=== PATIENT | male | born 1960 | race Caucasian/White ===

== ENCOUNTER 2016-09-12 08:12 | Inpatient (IN) | payer OTHER ==
[2016-08-01 09:59] VITALS: BMI 31.0
--- NOTE | 2016-08-01 10:34 | PAT Medication Instructions ---
Service Date Aug 01, 2016. Current Home Medication List Aspirin (Aspirin Ec), 81 MG PO HS Znhkhmzzwmlu-Qfxnwkzidllji-Zuf (Dermacinrx Therazole Jeronimo 1-0.05 & 20 %), 1 DOSE TOP UD PRN for PRN Diclofenac (Voltaren), 75 MG PO BID Losartan Potassium (Cozaar), 25 MG PO QAM Metformin Hcl (Glucophage), 500 MG PO BID Saccharomyces Boulardii (Probiotic), 1 CAP PO QAM Silodosin (Rapaflo), 1 CAP PO DAILY PRN for PRN Sitagliptin Phosphate (Januvia), 100 MG PO QPM Medication Instructions For Your Scheduled Surgery - Hold the following medications 10 days prior to surgery: Diclofenac (Voltaren), 75 MG PO BID - Hold the following medications 48 hours prior to surgery: Metformin Hcl (Glucophage), 500 MG PO BID - Hold the following medications 24 hours prior to surgery: Qejjimnjntkb-Zhtnlifvdentg-Icb (Dermacinrx Therazole Jeronimo 1-0.05 & 20 %), 1 DOSE TOP UD PRN for PRN - Hold the following medications the morning of surgery: Losartan Potassium (Cozaar), 25 MG PO QAM Saccharomyces Boulardii (Probiotic), 1 CAP PO QAM - Take the following medications the morning of surgery with a sip of water OTHERWISE NOTHING TO EAT OR DRINK AFTER MIDNIGHT: Tylenol (okay to take if needed up to 4 hours prior to surgery) - Take the following medications as scheduled the night before surgery: Sitagliptin Phosphate (Januvia), 100 MG PO QPM Aspirin (Aspirin Ec), 81 MG PO HS Silodosin (Rapaflo), 1 CAP PO DAILY PRN Tylenol If you have any questions please call us at [phone] (Bertha Guevara PA-C) or [phone] or [phone]
[2016-08-01 10:56] LABS: BASO % 0.6 %; BASO ABS # 0.04 K/uL (0-0.2); COMPLETE YES; EOS % 1.9 %; HEMATOCRIT 42.8 % (42-52); IG% 0.3 %; LYMPH % 19.8 %; LYMPH ABS # 1.27 K/uL (1.2-3.4); MEAN CELL VOLUME 84.1 fL (80-100); MEAN CORPUSCULAR HEMOGLOBIN 29.7 pg (25-34); MEAN CORPUSCULAR HGB CONC 35.3 g/dl (32-36); MEAN PLATELET VOLUME 9.4 fL (7.4-10.4); MONO % 7.3 %; NEUT % 70.1 %; PLATELET COUNT 242 K/uL (130-400); RED BLOOD COUNT 5.09 M/uL (4.7-6.1); WHITE BLOOD COUNT 6.41 K/uL (4.8-10.8)
[2016-08-01 11:05] LABS: PROTHROMBIN TIME (PATIENT) 10.8 SECONDS (9.0-12.0)
--- NOTE | 2016-08-01 11:06 | DIAGNOSTIC IMAGING REPORT ---
TWO VIEW CHEST CLINICAL HISTORY: Preoperative examination. FINDINGS: PA and lateral chest radiographs are compared to study dated 03/30/2013. The cardiomediastinal silhouette is unremarkable. The lungs and pleural spaces are clear. There is no pneumothorax. The bony thorax appears intact. IMPRESSION: No active disease in the chest. Electronically signed by: Horacio Garrison M.D. 08/01/2016 11:04 AM
[2016-08-01 12:05] LABS: BUN/CREATININE RATIO 13.8 (10-20); POTASSIUM 4.7 mmol/L (3.5-5.1)
[2016-08-01 12:41] LABS: CALCIUM 9.4 mg/dl (8.5-10.1)
--- NOTE | 2016-09-08 08:14 | HISTORY & PHYSICAL EXAMINATION ---
DATE OF ADMISSION: 09/12/2016 CHIEF COMPLAINT: Bilateral knee pain and discomfort, left side greater than right. HISTORY OF PRESENT ILLNESS: The patient is a 56-year-old very active palomares fairly well controlled diabetes who presents for surgical treatment of both knees. He has a long history of bilateral knee pain and discomfort. Left knee hurts a bit more than the right. He has been through extensive conservative therapy including oral medicines as well as injections. The shots give him a couple weeks of relief at best and that is it. 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 By the end of the day, he has difficulty getting around. He has swelling that gets worse as the day goes on. He actually gets pain in the middle of the night that wakes him up. He would like to have both knees replaced. PAST MEDICAL HISTORY: Significant for: 1. Diabetes, well controlled. 2. Gastroesophageal reflux disease. 3. Sleep apnea. 4. Hypertension. PREVIOUS SURGERIES: Include: 1. Biceps repair. 2. Knee arthroscopy. ALLERGIES: HYDROCODONE WHICH CAUSES ITCHING, NOT A TRUE ANAPHYLACTIC REACTION. CURRENT MEDICINES: Include: 1. Diclofenac 75 mg twice a day. 2. Januvia 10 mg a day. 3. Losartan 25 mg. 4. Metformin 500 mg 2 twice a day. 5. Aspirin 81 mg a day. SOCIAL HISTORY: A 56-year-old male. He is a palomares. He does not smoke. FAMILY HISTORY: Noncontributory. REVIEW OF SYSTEMS: Negative for neurological problem, vascular problems or bleeding disorders. Denies any chest pain. No shortness of breath. No history of DVT or PE. PHYSICAL EXAMINATION: GENERAL: Reveals a healthy, pleasant, middle-aged male. He looks to be in excellent health. HEENT EXAMINATION: Benign. NECK: Supple. No lymphadenopathy. LUNGS: Clear to auscultation. HEART: Has a regular rate and rhythm. ABDOMEN: Soft, nontender, nondistended. EXTREMITY EXAMINATION: Grossly neurovascularly intact except as follows: Examination of both knees reveals the patient ambulate independently. He has varus alignment to both knees. He has got a varus thrust with weightbearing on both sides. Range of motion is pretty symmetrically about 5 degrees short of full extension and 20 degrees of flexion. Again, no pain with hip motion on either side. X-RAYS: X-rays of both knees reveal advanced bilateral knee DJD. The left side is a bit worse than the right. He has got fixed varus deformities to his knee with subchondral sclerosis. ASSESSMENT: A 56-year-old male palomares with advanced bilateral knee pain and degenerative joint disease, unresponsive to conservative treatment. He does have a history of knee arthroscopy in the past. He has failed conservative care and would like to have both knees replaced. PLAN: We are going to take him to the operating room and do bilateral knee replacements. The risks and benefits of this procedure were explained to the patient including but not limited to DVT, PE, , infection, neurological injury, vascular injury, bleeding problem, pain, limited range of motion, stiffness, failure to relieve his symptoms, incomplete relief of symptoms, need for further surgery in the future, persistent pain, etc. The patient understands and desires. Informed consent was obtained. We did talk to him about holding his diclofenac 10 days preop and hold his metformin 2 days preop. As far as discharge plans, he is willing to go to [facility] if he can get that approved postop. We will see how he does in the hospital.
[2016-09-12] VITALS (9 sets, daily range): BP systolic 116–150; BP diastolic 72–92; PULSE 68–108; TEMP 36.5–37.2; O2SAT 91–99; Ht 182.9 cm; Wt 105.9 kg
[~2016-09-12] VITALS: Ht 182.9 cm; Wt 105.9 kg
[~2016-09-12 08:12] MED LIST: ACETAMINOPHEN 500 MG TAB PO SCH; ASPI81TA28 PO; BUPIVACAINE 0.25% 30 ML VIAL ONE; BUPIVACAINE 0.5 % 5 MG/1 ML PF 10ML VIAL ONE; BUPIVACAINE LIPOSOME 266 MG, BUPIVACAINE/EPINEPHRINE INJ 50 ML, SODIUM CHLORIDE 0.9% PF... INFIL SCH; CEFAZOLIN 2000 MG/60 ML D5W 60 ML IV SCH; CLOT1PAK TOP; DICL-201 PO; FAMOTIDINE 20 MG TAB PO SCH; GABAPENTIN 300 MG CAP PO SCH; GLC/500 PO; LACTATED RINGER'S 1000ML 500 ML IV ONE; LACTATED RINGER'S 1000ML IV SCH; LOSA1TAB PO; METOCLOPRAMIDE HCL 10 MG TAB PO SCH; SACC250C11 PO; SCOPOLAMINE 1.5 MG TDSY TD SCH; SILO8CAP PO; SITA100T3 PO; TRANEXAMIC ACID INJ 1,000 MG in SODIUM CHLORIDE 0.9% 100ML 100 ML IV SCH
--- NOTE | 2016-09-12 08:46 | History & Physical Bridge Note ---
H&P Re-Evaluation Bridge Note: I have examined the patient, reviewed the History & Physical and in the interval since the performance of the History & Physical I have noted the following changes of clinical significance: No changes noted
[2016-09-12] MEDS: LACTATED RINGER'S 1000ML 1,000 ML IV SCH ×2 (08:47→15:17)
[2016-09-12] MEDS ORDERED: FENTANYL CITRATE INJ 50 MCG/1 ML 2 ML VIAL ONE (09:15)
[2016-09-12] MEDS ORDERED: PROPOFOL IV EMULSION 10 MG/ML 20 ML VIAL IV ONE ×3 (09:15→13:31)
[2016-09-12] MEDS ORDERED: MIDAZOLAM HCL 1 MG/ML 2ML VIAL ONE ×2 (09:15→10:14)
[2016-09-12] MEDS ORDERED: LIDOCAINE HCL 2% 2 ML VIAL (20MG/ML) ONE (09:15)
[2016-09-12] MEDS ORDERED: BUPIVACAINE LIPOSOME 1/3% 266 MG/20 ML VIAL INFIL ONE (10:32)
[2016-09-12] MEDS ORDERED: LABETALOL HCL IV 5 MG/ML 20ML IV PRN (12:00)
[2016-09-12] MEDS ORDERED: EpHEDrine SULFATE INJ 50 MG/ML AMP IV PRN (12:00)
[2016-09-12] MEDS ORDERED: ONDANSETRON INJ 2 MG/ML 2 ML VIAL IV PRN ×2 (12:00→14:15)
[2016-09-12] MEDS ORDERED: MEPERIDINE HCL 25 MG/ML CARP IV PRN (12:00)
[2016-09-12] MEDS ORDERED: ATROPINE SULFATE 0.1 MG/ML 5ML SYR IV PRN (12:00)
[2016-09-12] MEDS ORDERED: FENTANYL CITRATE INJ 50 MCG/1 ML 2 ML VIAL IV PRN (12:00)
[2016-09-12] MEDS ORDERED: HYDROmorphone INJ 1 MG/ML SYR IV PRN ×2 (12:00→21:15)
[2016-09-12] MEDS ORDERED: BACITRACIN 50000 UNIT VIAL IR ONE (12:33)
--- NOTE | 2016-09-12 14:01 | [facility] Post Operative Brief Note ---
Immediate Operative Summary Operative Date Sep 12, 2016. Pre-Operative Diagnosis Advanced Bilateral Knee Degenerative Joint Disease Post-Operative Diagnosis Advanced Bilateral Knee Degenerative Joint Disease Procedure(s) Performed Bilateral Total Knee Arthroplasty Surgeon Dr. Ac Organization Development Consultant Surgeon(s) CARLA Pruitt Estimated Blood Loss 100 ML Findings Bilateral Knee DJD Fluids (cc crystalloids) 1800 cc Specimens A. Left Knee Bone and Tissue B. Right Knee Bone and Tissue Drains HMV to OrthoPAT Anesthesia Spinal Complication(s) None Disposition Recovery Room / PACU
[2016-09-12] MEDS ORDERED: SILVER SULFADIAZINE 1% CR 50 GM JAR EXT PRN (14:15)
[2016-09-12] MEDS ORDERED: GLUCAGON FOR INJ 1 MG VIAL SQ PRN (14:15)
[2016-09-12] MEDS ORDERED: METOCLOPRAMIDE HCL INJ 5 MG/ML 2 ML VIAL IV PRN (14:15)
[2016-09-12] MEDS ORDERED: GLUCOSE 10 TABS/TUBE PO PRN (14:15)
[2016-09-12] MEDS ORDERED: ALUMINUM/MAGNESIUM/SIMETH (MAALOX MAX) 30 ML UDC PO PRN (14:15)
[2016-09-12] MEDS ORDERED: DiphenhydrAMINE HCL 50 MG/ML VIAL IV PRN (14:15)
[2016-09-12] MEDS ORDERED: MAGNESIUM HYDROXIDE SUSP 30 ML UDC PO PRN (14:15)
[2016-09-12] MEDS ORDERED: MoRPHine SULFATE 2 MG/ML CARP IV PRN (14:15)
[2016-09-12] MEDS ORDERED: BISACODYL 10 MG SUPP PR PRN (14:15)
[2016-09-12] MEDS ORDERED: TAMSULOSIN HCL 0.4 MG CAP PO PRN (14:15)
[2016-09-12] MEDS ORDERED: ZOLPIDEM TARTRATE 5 MG TAB PO PRN (14:15)
[2016-09-12] MEDS ORDERED: GLUCOSE 40% GEL 15 GM TUBE PO PRN (14:15)
[2016-09-12] MEDS ORDERED: DEXTROSE 50% 50 ML SYR IV PRN (14:15)
--- NOTE | 2016-09-12 14:34 | DIAGNOSTIC IMAGING REPORT ---
RIGHT KNEE 1 OR 2 VIEWS ROUTINE CLINICAL HISTORY: Right knee arthroplasty. Degenerative joint disease. COMPARISON: Knee radiographs July 13, 2016. FINDINGS: Alignment of the total right knee arthroplasty is anatomic. There is no fracture or unexpected radiopaque foreign body. Drains and skin amado are present. IMPRESSION: Expected findings following total right knee arthroplasty. Electronically signed by: Presley Barrera M.D. 09/12/2016 2:32 PM Dictated Date/Time: 09/12/2016 2:31 PM
--- NOTE | 2016-09-12 14:34 | DIAGNOSTIC IMAGING REPORT ---
LEFT KNEE 1 OR 2 VIEWS ROUTINE CLINICAL HISTORY: Bilateral knee arthroplasty. Degenerative joint disease. COMPARISON: Bilateral knee radiographs July 13, 2016. FINDINGS: Alignment of the total left knee arthroplasty is anatomic. There is no fracture or unexpected radiopaque foreign body. Drains and skin amado are present. IMPRESSION: Expected findings following total left knee arthroplasty. Electronically signed by: Presley Barrera M.D. 09/12/2016 2:33 PM Dictated Date/Time: 09/12/2016 2:32 PM
--- NOTE | 2016-09-12 15:16 | Anesthesiology Progress Note ---
Anesthesia Post Op Note Date & Time Sep 12, 2016 at 15:15 Vital Signs Pain Intensity: 0 Vital Signs Past 12 Hours Date Time Temp Pulse Resp B/P Pulse Ox O2 Delivery O2 Flow Rate FiO2 09/12/16 15:10 36.2 69 14 122/81 99 Nasal Cannula 2 09/12/16 15:00 62 12 124/78 100 Nasal Cannula 2 09/12/16 14:50 61 9 100/80 99 Nasal Cannula 2 09/12/16 14:40 67 12 120/83 99 Nasal Cannula 2 09/12/16 14:30 61 15 117/81 99 Nasal Cannula 2 09/12/16 14:20 74 17 129/83 99 Mask 10 09/12/16 14:10 36.1 88 11 126/89 100 Mask 10 09/12/16 14:02 36.1 72 12 135/77 100 Mask 10 09/12/16 08:49 36.9 83 18 150/92 97 Room Air Notes Mental Status: alert / awake / arousable, participated in evaluation Pt Amnestic to Procedure: Yes Nausea / Vomiting: adequately controlled Pain: adequately controlled Airway Patency, RR, SpO2: stable & adequate BP & HR: stable & adequate Hydration State: stable & adequate Neuraxial Anesthesia: was administered, sensory block is resolving Anesthetic Complications: no major complications apparent
[2016-09-12] MEDS: CHECK SCOPOLAMINE PATCH PLACEMENT SCH ×2 (16:57→23:57)
[2016-09-12] MEDS: SODIUM CHLORIDE 0.9% 1000ML 1,000 ML IV SCH ×2 (16:58→20:41)
[2016-09-12] MEDS: RAPAFLO: ORDER AWAITING ACTION SCH ×2 (16:59→23:58)
[2016-09-12] MEDS: INSULIN HUMAN REGULAR SC SCH ×2 (17:01→21:00)
[2016-09-12] MEDS: FERROUS GLUCONATE 324 MG TAB PO SCH (18:29)
[2016-09-12] MEDS: OXYCODONE HCL IR 5 MG TAB (IMMEDIATE RELEASE) PO PRN ×2 (18:31→23:57)
[2016-09-12] MEDS: CEFAZOLIN IV 2,000 MG in DEXTROSE 5% 50ML 50 ML IV SCH (20:11)
[2016-09-12] MEDS: ACETAMINOPHEN 500 MG TAB PO SCH (20:11)
[2016-09-12] MEDS ORDERED: NURSING VERBAL MED ORDER ONE (20:30)
[2016-09-12] MEDS ORDERED: HYDROmorphone INJ 1 MG/ML SYR ONE (20:52)
[2016-09-12] MEDS: TAPENTADOL ER 50 MG TABCR PO SCH (21:03)
[2016-09-12] MEDS: SITAGLIPTIN 100 MG TAB PO SCH (21:04)
[2016-09-12] MEDS: DOCUSATE SODIUM 100 MG CAP PO SCH (21:05)
[2016-09-12] MEDS: ASPIRIN 325 MG ECTAB PO SCH (21:05)
[2016-09-12] MEDS ORDERED: TRANEXAMIC ACID INJ 1,000 MG in SODIUM CHLORIDE 0.9% 100ML 100 ML IV ONE (22:00)
[2016-09-12] MEDS: KETOROLAC TROMETHAMINE 30 MG/ML VIAL IV. SCH (22:03)
[2016-09-13] VITALS (8 sets, daily range): BP systolic 103–146; BP diastolic 66–83; PULSE 95–113; TEMP 36.5–37.6; O2SAT 93–96
[2016-09-13] MEDS: SODIUM CHLORIDE 0.9% 1000ML 1,000 ML IV SCH ×2 (01:53→09:09)
[2016-09-13] MEDS: CEFAZOLIN IV 2,000 MG in DEXTROSE 5% 50ML 50 ML IV SCH (04:02)
[2016-09-13] MEDS: ACETAMINOPHEN 500 MG TAB PO SCH ×3 (04:03→20:13)
[2016-09-13] MEDS: KETOROLAC TROMETHAMINE 30 MG/ML VIAL IV. SCH ×4 (04:03→22:20)
[2016-09-13 06:42] LABS: HEMATOCRIT 34.9 % (42-52); MEAN CELL VOLUME 83.5 fL (80-100); MEAN CORPUSCULAR HEMOGLOBIN 30.6 pg (25-34); MEAN CORPUSCULAR HGB CONC 36.7 g/dl (32-36); MEAN PLATELET VOLUME 9.3 fL (7.4-10.4); PLATELET COUNT 224 K/uL (130-400); RED BLOOD COUNT 4.18 M/uL (4.7-6.1); WHITE BLOOD COUNT 11.59 K/uL (4.8-10.8)
[2016-09-13] MEDS: RAPAFLO: ORDER AWAITING ACTION SCH ×3 (07:05→23:54)
[2016-09-13 07:07] LABS: BUN/CREATININE RATIO 17.8 (10-20); CALCIUM 7.8 mg/dl (8.5-10.1); CREATININE 1.4 mg/dl (0.60-1.40); POTASSIUM 4.3 mmol/L (3.5-5.1)
[2016-09-13] MEDS: OXYCODONE HCL IR 5 MG TAB (IMMEDIATE RELEASE) PO PRN ×4 (07:29→22:19)
[2016-09-13] MEDS: CHECK SCOPOLAMINE PATCH PLACEMENT SCH ×3 (07:29→23:54)
[2016-09-13] MEDS: INSULIN HUMAN REGULAR SC SCH ×4 (08:44→21:24)
[2016-09-13] MEDS: TAPENTADOL ER 50 MG TABCR PO SCH ×2 (08:45→21:15)
[2016-09-13] MEDS: ASPIRIN 325 MG ECTAB PO SCH ×2 (08:45→21:17)
[2016-09-13] MEDS: FERROUS GLUCONATE 324 MG TAB PO SCH ×3 (08:45→18:00)
[2016-09-13] MEDS: PANTOprazole SOD 40 MG TAB PO SCH (08:45)
[2016-09-13] MEDS: DOCUSATE SODIUM 100 MG CAP PO SCH ×2 (08:45→21:17)
[2016-09-13] MEDS: MULTIVITAMIN TAB PO SCH (08:45)
[2016-09-13] MEDS: LOSARTAN POTASSIUM 25 MG TAB PO SCH (08:45)
[2016-09-13] MEDS: SACCHAROMYCES BOUL (FLORASTOR) 250 MG CAP PO SCH (08:45)
--- NOTE | 2016-09-13 10:33 | PROGRESS NOTE ---
DATE: 09/13/2016 DATE: 09/13/2016. SUBJECTIVE: A 56-year-old gentleman postop day 1 from bilateral knee replacements. He is doing well. Pain is controlled. Therapy went reasonably well. No chest pain or shortness of breath. Not feeling dizzy or lightheaded. OBJECTIVE: VITAL SIGNS: Temperature 36.6. Vital signs stable. PHYSICAL EXAMINATION: GENERAL: Reveals a healthy, pleasant, middle-aged male. He is sitting up at his bedside talking to the therapist. LUNGS: Clear to auscultation. HEART: Regular rate and rhythm. ABDOMEN: Soft, nontender, nondistended. EXTREMITY EXAMINATION: Grossly neurovascularly intact except as follows: Examination of both lower extremities reveals the dressing to be clean, dry and intact. Legs are well aligned. He can dorsiflex and plantarflex both feet appropriately. He is neurologically intact. LABORATORY DATA: Hemoglobin is 12.8. Hematocrit 34.9. White cell count 11.59. Electrolytes are stable. ASSESSMENT: A 56-year-old gentleman postop day 1 from bilateral knee replacements, doing well. Pain is controlled. He is neurologically intact. PLAN: 1. DVT prophylaxis including thigh-high TEDs, SCDs, and aspirin twice a day. 2. PT/OT. Weightbearing as tolerated. Bilateral knee protocol. 3. Pain control, doing well with current pain regimen. 4. Disposition: He is hoping to be discharged to [facility] for rehab stay if he qualifies. Social workers are working on this.
--- NOTE | 2016-09-13 13:45 | OPERATIVE REPORT ---
DATE OF OPERATION: 09/12/2016 SURGEON: Zachary Ac MD DIRECTOR OF CARDIAC REHABILITATION: CARLA Chambers PREOPERATIVE DIAGNOSIS: Bilateral knee degenerative joint disease. POSTOPERATIVE DIAGNOSIS: Same. PROCEDURE PERFORMED: Bilateral cemented posterior stabilized total knee arthroplasty. COMPLICATIONS: None. ESTIMATED BLOOD LOSS: 100 mL. FLUID REPLACEMENT: 1800 mL crystalloid fluid replacement. TOURNIQUET TIME: Left side tourniquet time was 82 minutes at 300 mmHg. Right side tourniquet time was 82 minutes at 300 mmHg. OPERATIVE INDICATIONS: The patient is a 56-year-old very active gentleman and palomares who has had a long history of bilateral knee pain and discomfort, left side a bit worse than the right. He had been through extensive conservative treatment without adequate relief. 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 He was strongly desiring to have both knees replaced at the same time. OPERATIVE FINDINGS: Operative findings revealed advanced bilateral knee DJD, primarily involving the medial compartment, both knees. He had grade 4 [id number] disease extensively of both the medial femoral condyle and medial tibial plateau in both knees. He did have a fixed varus deformity to both knees. Moderate size joint effusions bilaterally. OPERATIVE IMPLANTS: Left side implants consisted of: 1. Biomet Vanguard size 72.5 posterior stabilized femoral component. 2. Biomet size 79 tibial tray. 3. A 12-mm posterior stabilized polyethylene insert. 4. A 34 x 8.5 all poly patella. Right side implants consisted of: 1. Biomet Vanguard size 75 right posterior stabilized femoral component. 2. Biomet size 79 tibial tray. 3. A 10-mm posterior stabilized polyethylene insert. 4. A 34 x 8.5 all poly patella. OPERATIVE PROCEDURE: The patient was taken to the operating room, identified and placed on the operating table in the supine position. All contact areas were appropriately padded. IV antibiotics were provided by anesthesia team. A spinal anesthetic and adductor canal blocks have been provided in the holding area. A Rogel catheter was placed in sterile fashion. Both lower extremities were then prepped and draped in the usual sterile fashion. Attention was first drawn to the left leg. Left leg was elevated and exsanguinated with Esmarch and tourniquet was placed at 300 mmHg. An anterior approach to the left knee was then performed through a longitudinal incision centered over the patella. Sharp dissection was carried through the subcutaneous tissue down to the level of the extensor mechanism. A medial parapatellar arthrotomy incision was made. Some subperiosteal dissection was carried out medially. We did a pretty extensive dissection due to his fixed varus deformity. The fat pad was resected from beneath the patellar tendon. The lateral patellofemoral ligament was released. The patella was everted and knee was flexed. The osteophytes were taken off the distal femur. The ACL and PCL were then released from the distal femur and the tibia subluxated anteriorly. The external tibial alignment jig was then placed in the anterior face of the tibia and adjusted 16 mm medially. Proximal tibial cut was made to remove about 2 mm of bone from the most deficient aspect of the medial tibial plateau. The tibia was sized to a size 79. Some osteophytes were taken off medial and posteromedially. Attention was then drawn to the femur. The distal femur was entered with a sharp drill. Intramedullary canal was suctioned. A left 6-degree valgus cutting guide was placed. Distal femoral cutting block was pinned in place. Distal femoral cut was made to take an additional 3 mm of bone off the distal femur. The femur was then sized to a size 72.5. We did downsize this slightly. The AP cutting block was pinned parallel to the epicondylar axis, which was 5 degrees of external rotation. The anterior cut, anterior chamfer, posterior cut, and posterior chamfer cuts were made. Box cutting guide was placed and adjusted slightly lateral and the box cut was made. The knee was flexed. The remnants of the medial and lateral menisci were excised. The osteophytes were taken off the posterior aspect of the femur. A trial femoral component was placed. Tibial tray was pinned in maximum external rotation and drill and stem punch were used to create defect in proximal tibia for the tibial tray. The knee was then trialed and the 12-mm insert fit most appropriately. Attention was then drawn to the patella. The patella was cleaned of all soft tissues. Patellar thickness measured 26 mm, cut down to 14. It was sized to a size 34 patella. Lug holes were drilled for a 34 patella. Lateral osteophyte was removed. Patella button was placed. Knee was taken through range of motion and the patella tracked nicely with no thumbs test. Attention was then drawn toward placement of permanent components. All trial components were removed. A bone plug was placed in the distal femur to limit blood loss. A double batch of Palacos G cement was mixed. A left size 72.5 posterior stabilized femoral component, size 79 tibial tray, 12-mm posterior stabilized polyethylene insert, and a 34 x 8.5 all poly patella were then cemented in place. Knee was brought out into full extension until cement hardened. A final cement check was then performed. The pericapsular tissues were injected with about 50 mL of a combination of 10 mL of Exparel, 15 mL of normal saline, and 25 mL of 0.25% Marcaine with epinephrine. The wound was irrigated. Two Hemovac drains were placed in the depth of the wound. The extensor mechanism was then closed with a combination of #1 PDS suture and #1 Vicryl suture in a yeadxr-[id number] fashion. Extensor mechanism was checked and found to be intact. The subcutaneous tissues were then closed with 2-0 Dexon suture in a buried interrupted fashion. Skin was closed skin amado. Leg was then cleaned and dried and a sterile dressing with Xeroform, 4 x 4, sterile cast padding and Taiwo bandage were applied. The tourniquet was then let down on this side for a tourniquet time 82 minutes. During the closure of the subcutaneous tissues and skin on the left knee, a similar procedure was begun on the right leg. The right lower leg was elevated and exsanguinated with Esmarch and tourniquet was placed at 300 mmHg. An anterior approach to the right knee was then performed through a longitudinal incision centered over the patella. Sharp dissection was carried out through the subcutaneous tissues down to the level of the extensor mechanism. A medial parapatellar arthrotomy incision was made. Some subperiosteal dissection was carried out medially. The fat pad was resected from beneath the patellar tendon. The patella was everted and the knee was flexed. The osteophytes were taken off the distal femur. The ACL and PCL were then released from the distal femur and the tibia subluxated anteriorly. The external tibial alignment jig was then placed in the anterior face of the tibia and adjusted 16 mm medially. Proximal tibial cut was made to remove about a millimeter of bone from the most deficient aspect of the medial tibial plateau. Tibia was sized to a size 79. Some osteophytes were taken off medial and posteromedially. Attention was then drawn to the femur. The distal femur was entered with a sharp drill. Intramedullary canal was suctioned. A right 6-degree valgus cutting guide was placed. The distal femoral cutting block was pinned in place. Distal femoral cut was made to take an additional 3 mm of bone off the distal femur. The femur was then sized to a size 75. The AP cutting block was pinned parallel to the epicondylar axis, which was 4 degrees of external rotation. The anterior cut, anterior chamfer, posterior cut, and posterior chamfer cuts were made. Box cutting guide was placed and adjusted slightly lateral and the box cut was made. The knee was flexed. The remnants of the medial and lateral menisci were excised. The osteophytes were taken off the posterior aspect of the femur. Trial femoral component was placed. Tibial tray was pinned in maximum external rotation and drill and stem punch were used to create defect in proximal tibia for the tibial tray. The knee was then trialed and the 10-mm insert fit most appropriately. Attention was then drawn to the patella. The patella was cleaned of all soft tissues. Patella thickness measured 25 mm and was cut down to 13. It was sized to a size 34 patella. Lug holes were drilled for a 34 patella. Lateral osteophyte was removed. Patella button was placed. Knee was taken through range of motion and the patella tracked nicely with no thumbs test. Attention was then drawn toward placement of permanent components. All trial components were removed. The bone plug was placed in the distal femur to limit blood loss. A double batch of Palacos G cement was mixed. A right size 75 posterior stabilized femoral component, size 79 tibial tray, a 10-mm posterior stabilized polyethylene insert, 34 x 8.5 all poly patella then cemented in place. Knee was brought out into full extension until cement hardened. A final cement check was then performed. The pericapsular tissues were injected with 50 mL of a combination of 10 mL of Exparel, 15 mL of normal saline, and 25 mL of 0.25% Marcaine with epinephrine. The wound was once again irrigated. Hemovac drain was placed in depth of the wound. The extensor mechanism was then closed with a combination of #1 PDS suture and #1 Vicryl suture in a [id number] fashion. Extensor mechanism was checked and found to be intact. The subcutaneous tissues were then closed with 2-0 Dexon suture in a buried interrupted fashion. Skin was closed with skin amado. The leg was then cleaned and dried and a sterile dressing of Xeroform, 4 x 4, sterile cast padding and Taiwo bandage were applied. The tourniquet was then let down on this side for a tourniquet time 82 minutes. Of note, the patient did receive 1 gram of tranexamic acid before the tourniquet on the left side, it was let down. The patient was then transferred to the recovery room in stable condition. The patient tolerated the procedure well with no complications. All needle and sponge counts were correct at the end of the operation. I attest to the content of the Intraoperative Record and any orders documented therein. Any exceptions are noted below. MTDD
[2016-09-13] MEDS ORDERED: ACET-1138 PO (19:42)
[2016-09-13] MEDS ORDERED: ASPEC325 PO (19:42)
[2016-09-13] MEDS ORDERED: MORP15TA19 PO (19:42)
[2016-09-13] MEDS ORDERED: RXC5 PO (19:42)
--- NOTE | 2016-09-13 19:45 | Discharge Instructions ---
Discharge Instructions Admission Reason for Admission: Bilateral Knee Degenerative Joint Disease Discharge Discharge Diagnosis / Problem: Bilateral Knee Replacements Discharge Goals Goal(s): Decrease discomfort, Improve function, Increase independence, Improve disease control, Therapeutic intervention Activity Recommendations Activity Level: Assistance Required Therapies: Physical Therapy, Occupational Therapy Weightbearing Status: Left weightbearing, Right weightbearing . Additional Information Patient informed of condition: Yes Advance Directives: No DNR: No Level of Care: Acute Rehab Communicable Disease: No Prognosis: Improving Instructions / Follow-Up Instructions / Follow-Up ACTIVITY RECOMMENDATIONS: Physical Therapy: * You will go to physical therapy three times each week for four to six weeks after your surgery in order to regain your knee range of motion and to retrain your knee to work properly. * It is just as important to make sure you are getting your knee perfectly straight as it is to regain your knee bend. * Taking a pain pill an hour before therapy can help you have a more productive and comfortable therapy session. Home Exercise: * You were shown a series of exercises (heel props, heel slides, etc.) in the hospital. Do these exercises three to four times each day including the exercises you were shown in physical therapy. Walking: * Get up and walk several times each day. For the first four weeks, try not to stand or walk for more than one hour at a time. If you do stand or walk for more than one hour, you will not hurt anything, but your knee and leg will likely swell. * As you feel comfortable, you may change from the walker or crutches to a cane and then to independent walking. MEDICATIONS: New Medicine: * You will likely be taking one or more of these medications: 1. MS Contin - A long-acting pain medication. Take 1 tablet twice a day for the first ten days to decrease your baseline level of pain. 2. Oxycodone - A quick and shorter-acting pain medication. Take one to two tablets every four to six hours to lessen your pain. 3. Aspirin - Thins your blood to lessen the chance of forming a blood clot. * The most common side effects of pain medicine and iron are nausea and constipation. If nausea or constipation is too much of a problem or if you have any questions about your new medicines or doses, call [facility] at [phone]. We will try to help you manage these issues. VERY IMPORTANT TO READ AND REVIEW" Pain: * The immediate post-operative period after knee replacement surgery is often quite painful. * You are given a prescription for pain medicine. You should take it, as directed, when you need it, especially before physical therapy and before going to bed. Pain that interferes with sleep is very common and can last several months. * You will likely need pain medicine for the first four to six weeks. It will not stop all of the pain. The pain will lessen and as you feel better, you may change to milder pain medicine such as Tylenol. * The most common side effects of pain medicine are nausea and constipation, so don't take more than you need. SPECIAL CARE INSTRUCTIONS: TEDs/Elastic Stockings: * The white elastic stockings help limit swelling and prevent blood clots from forming in your legs. The more you wear them, the more they work. * Wear them for six weeks after knee replacement surgery and four weeks after partial knee replacement. Prevention of Infection: * Take antibiotics one hour before any dental cleaning, dental work, urological procedure, gastrointestinal procedure or any invasive surgery in order to prevent your new joint from getting infected. * You may get the antibiotics from the doctor performing the procedure or you may call our office at before and we will call in a prescription to the pharmacy of your choice. Things to Watch For: * Drainage from the incision site that occurs more than one week after your surgery. * Severely increased knee/leg pain or swelling. * Increased redness at the incision site. * Fever above 102 degrees Fahrenheit. * Unusual chest pain or shortness of breath. * Unusual pain or burning with urination. Call [facility] at with any of the above problems or if you have any questions about your medicines or recovery. FOLLOW UP VISIT: Make an appointment to see your doctor for approximately two weeks after surgery for a progress check and staple removal by calling the office at . Current Hospital Diet Patient's current hospital diet: Diabetes Type 2 Diet Discharge Diet Recommended Diet: Diabetes Type 2 Diet Procedures Procedures Performed: Bilateral Total Knee Arthroplasty Pending Studies Studies pending at discharge: no Laboratory Results Hemoglobin A1c Test 06/16/16 07:30 Range/Units Estimated Average Glucose 140 mg/dl Hemoglobin A1c 6.5 H 4.5-5.6 % Lipid Panel Test 06/16/16 08:30 Range/Units Triglycerides Level 70 0-150 mg/dl Cholesterol Level 145 0-200 mg/dl HDL Cholesterol 37 mg/dl Cholesterol/HDL Ratio 3.9 LDL Cholesterol, Calculated 94 mg/dl Medical Emergencies . Who to Call and When: Medical Emergencies: If at any time you feel your situation is an emergency, please call 911 immediately. . Non-Emergent Contact Non-Emergency issues call your: Surgeon . . "Provider Documentation" section prepared by Zachary Ac. Core Measure Problem Core Measures: None
[2016-09-13] MEDS: SITAGLIPTIN 100 MG TAB PO SCH (22:19)
[2016-09-14] VITALS: PULSE 95
[2016-09-14] MEDS: ACETAMINOPHEN 500 MG TAB PO SCH ×2 (04:18→12:42)
[2016-09-14] MEDS: KETOROLAC TROMETHAMINE 30 MG/ML VIAL IV. SCH ×3 (04:19→15:57)
[2016-09-14 06:25] VITALS: BP 112/69; PULSE 102; TEMP 37; O2SAT 92
[2016-09-14] MEDS: RAPAFLO: ORDER AWAITING ACTION SCH ×2 (07:09→16:00)
[2016-09-14] MEDS: MULTIVITAMIN TAB PO SCH (07:22)
[2016-09-14] MEDS: SACCHAROMYCES BOUL (FLORASTOR) 250 MG CAP PO SCH (07:23)
[2016-09-14] MEDS: PANTOprazole SOD 40 MG TAB PO SCH (07:23)
[2016-09-14] MEDS: LOSARTAN POTASSIUM 25 MG TAB PO SCH (07:23)
[2016-09-14] MEDS: FERROUS GLUCONATE 324 MG TAB PO SCH ×3 (07:23→17:45)
[2016-09-14] MEDS: INSULIN HUMAN REGULAR SC SCH ×3 (07:27→17:16)
[2016-09-14] MEDS: TAPENTADOL ER 50 MG TABCR PO SCH (07:28)
[2016-09-14] MEDS: ASPIRIN 325 MG ECTAB PO SCH (08:43)
[2016-09-14] MEDS: DOCUSATE SODIUM 100 MG CAP PO SCH (08:43)
--- NOTE | 2016-09-14 09:15 | PROGRESS NOTE ---
DATE: 09/14/2016 DATE: 09/14/2016. SUBJECTIVE: A 56-year-old gentleman postop day 2 from bilateral knee replacement. He is doing well. Pain is controlled. Therapy went pretty well. Denies any chest pain or shortness of breath. Not feeling dizzy or lightheaded. OBJECTIVE: VITAL SIGNS: Temperature is 37.0. Vital signs stable. PHYSICAL EXAMINATION: GENERAL: Reveals a pleasant, middle-aged male. He is sitting up in bed, looks pretty comfortable this morning. LUNGS: Clear to auscultation. HEART: Has a regular rate and rhythm. ABDOMEN: Soft, nontender, nondistended. EXTREMITY EXAMINATION: Grossly neurovascularly intact except as follows: Examination of both lower extremities reveals the dressing to be clean, dry and intact. Both legs are well aligned. There is not much in the way of swelling. He can dorsiflex and plantarflex both feet appropriately. He is neurologically intact. ASSESSMENT: A 56-year-old gentleman postop day 2 from bilateral knee replacements doing well. Pain is controlled. PLAN: 1. DVT prophylaxis includes thigh high TEDs, SCDs, and aspirin twice a day. 2. PT/OT. Weightbearing as tolerated. Bilateral knee protocol. 3. Pain control, doing well with current pain regimen. 4. Disposition: He is hoping to go to [facility] for a brief rehab stay. We are awaiting determination and insurance approval and acceptance.
[2016-09-14 15:01] VITALS: BP 104/68; PULSE 104; TEMP 36.9; O2SAT 96
[2016-09-14] MEDS: OXYCODONE HCL IR 5 MG TAB (IMMEDIATE RELEASE) PO PRN (16:23)
--- NOTE | 2016-09-22 17:05 | DISCHARGE SUMMARY ---
ADMITTING PHYSICIAN AND SURGEON: Dr. Ac. ADMITTING DIAGNOSIS: Bilateral knee degenerative joint disease. SURGERY PERFORMED: Bilateral total knee replacements. SECONDARY DIAGNOSES: Include diabetes, gastroesophageal reflux disease, sleep apnea, and hypertension. HISTORY AND PHYSICAL: Well documented in the patient's chart. HOSPITAL COURSE: The patient was admitted on 09/12/2016 underwent bilateral total knee replacements, tolerated the procedure well. There were no complications. He was transferred to the PACU postoperatively and later to the orthopedic floor for further care. He was given Ancef for antibiotic prophylaxis, HARRISON stockings, SCDs and aspirin for DVT prophylaxis. Her hemoglobin, hematocrit and vital signs were monitored during his hospital stay and remained stable. He did not require any blood transfusions. There were no complications. By postoperative day 2, he was tolerating a diabetic diet. Pain was controlled with oral pain medicine. He was participating in physical therapy and he had no signs or symptoms of deep vein thrombosis. On postop day 2, he was transferred to a rehab facility in good condition. He was given printed discharge instructions including prescriptions for extra strength Tylenol, aspirin 325 mg b.i.d., MS Contin and oxycodone. Continue his home medications with the exception of his home dose of aspirin which was discontinued or changed. Continue physical therapy, weightbearing as tolerated, HARRISON stockings. Follow up with Dr. Ac in 10-12 days or sooner if there are problems or concerns.
== END 2016-09-14 17:58 | DRG 462 ==
LOC: ENRESERVDT → ENRESERVTM → C.ACU 08:12 → C.3E 14:07
PROVIDERS: ADMIT Orthopaedic Surgery Sports Medicine; ATTEND Orthopaedic Surgery Sports Medicine
PROC: 0SRC0J9 Replacement of Right Knee Joint with Synthetic Substitute, Cemented, Open Approach (ICD-10-PCS; principal; 2016-09-12 10:40)
PROC: 0SRD0J9 Replacement of Left Knee Joint with Synthetic Substitute, Cemented, Open Approach (ICD-10-PCS; principal; 2016-09-12 10:40)
DX: M17.0 Bilateral primary osteoarthritis of knee (principal); M21.162 Varus deformity, not elsewhere classified, left knee; M21.161 Varus deformity, not elsewhere classified, right knee; M25.462 Effusion, left knee; M25.461 Effusion, right knee; E11.9 Type 2 diabetes mellitus without complications; K21.9 Gastro-esophageal reflux disease without esophagitis; G47.30 Sleep apnea, unspecified; I10 Essential (primary) hypertension; N40.0 Benign prostatic hyperplasia without lower urinary tract symptoms; E66.9 Obesity, unspecified; Z68.31 Body mass index [BMI] 31.0-31.9, adult; Z72.0 Tobacco use; Z79.1 Long term (current) use of non-steroidal anti-inflammatories (NSAID); Z79.82 Long term (current) use of aspirin; Z79.899 Other long term (current) drug therapy

== ENCOUNTER → 2016-10-02 | Outpatient (CLI) | payer OTHER ==
[~2016-10-02] MED LIST changes: +ACET-1138 PO; -ACETAMINOPHEN 500 MG TAB PO SCH; +ASPEC325 PO; -ASPI81TA28 PO; -BUPIVACAINE 0.25% 30 ML VIAL ONE; -BUPIVACAINE 0.5 % 5 MG/1 ML PF 10ML VIAL ONE; -BUPIVACAINE LIPOSOME 266 MG, BUPIVACAINE/EPINEPHRINE INJ 50 ML, SODIUM CHLORIDE 0.9% PF... INFIL SCH; -CEFAZOLIN 2000 MG/60 ML D5W 60 ML IV SCH; -FAMOTIDINE 20 MG TAB PO SCH; -GABAPENTIN 300 MG CAP PO SCH; -LACTATED RINGER'S 1000ML 500 ML IV ONE; -LACTATED RINGER'S 1000ML IV SCH; -METOCLOPRAMIDE HCL 10 MG TAB PO SCH; +RXC5 PO; -SCOPOLAMINE 1.5 MG TDSY TD SCH; -TRANEXAMIC ACID INJ 1,000 MG in SODIUM CHLORIDE 0.9% 100ML 100 ML IV SCH
[2016-10-02 12:08] LABS: BASO % 0.5 %; BASO ABS # 0.04 K/uL (0-0.2); COMPLETE YES; EOS % 4.5 %; HEMATOCRIT 34.1 % (42-52); IG% 0.5 %; LYMPH % 17.9 %; LYMPH ABS # 1.32 K/uL (1.2-3.4); MEAN CELL VOLUME 86.1 fL (80-100); MEAN CORPUSCULAR HGB CONC 33.7 g/dl (32-36); MEAN PLATELET VOLUME 8.7 fL (7.4-10.4); MONO % 7.3 %; NEUT % 69.3 %; PLATELET COUNT 613 K/uL (130-400); RED BLOOD COUNT 3.96 M/uL (4.7-6.1); WHITE BLOOD COUNT 7.36 K/uL (4.8-10.8)
[2016-10-02 12:37] LABS: BLOOD UREA NITROGEN 22 mg/dl (7-18); BUN/CREATININE RATIO 21.7 (10-20); CALCIUM 9.1 mg/dl (8.5-10.1); CARBON DIOXIDE 28 mmol/L (21-32); CHLORIDE 102 mmol/L (98-107); GLUCOSE 192 mg/dl (70-99); POTASSIUM 4.4 mmol/L (3.5-5.1); SODIUM 138 mmol/L (136-145)
== END | disposition home or self-care (01) ==
LOC: C.LAB 11:17
PROVIDERS: ATTEND Family Medicine
DX: D64.9 Anemia, unspecified (principal); R11.0 Nausea

== ENCOUNTER → 2017-04-09 | Outpatient (CLI) | payer OTHER ==
[2017-04-09 13:27] LABS: BASO % 0.3 %; BASO ABS # 0.02 K/uL (0-0.2); COMPLETE YES; EOS % 0.8 %; HEMATOCRIT 43.4 % (42-52); IG% 0.1 %; LYMPH % 19.1 %; LYMPH ABS # 1.38 K/uL (1.2-3.4); MEAN CELL VOLUME 82.4 fL (80-100); MEAN CORPUSCULAR HGB CONC 35.3 g/dl (32-36); MEAN PLATELET VOLUME 9.3 fL (7.4-10.4); MONO % 5.1 %; NEUT % 74.6 %; PLATELET COUNT 285 K/uL (130-400); RED BLOOD COUNT 5.27 M/uL (4.7-6.1); WHITE BLOOD COUNT 7.22 K/uL (4.8-10.8)
[2017-04-09 13:41] LABS: ESTIMATED AVERAGE GLUCOSE 163 mg/dl; HA1C FLAG Normal (Normal)
[2017-04-09 14:04] LABS: RATIO 16.2 mcg/mg (0-30.0)
[2017-04-09 14:05] LABS: FERRITIN 183.7 ng/ml (8.0-388.0); THYROID STIMULATING HORMONE 1.65 uIu/ml (0.300-4.500)
== END | disposition home or self-care (01) ==
LOC: C.LAB 11:56
PROVIDERS: ATTEND Family Medicine
DX: D64.9 Anemia, unspecified (principal); M17.10 Unilateral primary osteoarthritis, unspecified knee; E11.9 Type 2 diabetes mellitus without complications; I10 Essential (primary) hypertension

== ENCOUNTER → 2017-10-12 | Outpatient (CLI) | payer OTHER ==
[2017-10-12 15:10] LABS: ALT/SGPT 22 U/L (12-78); BLOOD UREA NITROGEN 11 mg/dl (7-18); CALCIUM 9.3 mg/dl (8.5-10.1); CARBON DIOXIDE 28 mmol/L (21-32); CHOLESTEROL 127 mg/dl (0-200); CREATININE 0.92 mg/dl (0.60-1.40); GLUCOSE 163 mg/dl (70-99); POTASSIUM 3.5 mmol/L (3.5-5.1); SODIUM 137 mmol/L (136-145)
[2017-10-12 15:13] LABS: LDL CHOLESTEROL CALCULATED 71 mg/dl
[2017-10-13 07:56] LABS: HEMOGLOBIN A1C 7.3 % (4.5-5.6)
== END | disposition home or self-care (01) ==
LOC: C.LAB 13:46
PROVIDERS: ATTEND Family Medicine
DX: E11.9 Type 2 diabetes mellitus without complications (principal)